=== PATIENT | female | born 1955 | race Hispanic/Latino ===

== ENCOUNTER 2019-04-21 07:57 | Day surgery (SDC) | payer OTHER ==
[2019-04-20 15:53] LABS: CREATININE 0.8 mg/dL (0.5-1.5)
[2019-04-20 15:54] LABS: BASOPHILS % (AUTO) 1.1 % (0.0-5.0); EOSINOPHILS % (AUTO) 3.1 % (0.0-8.0); HEMATOCRIT 41.7 % (36-48); LYMPHOCYTES % (AUTO) 34.9 % (21.0-51.0); MEAN CORPUSCULAR HEMOGLOBIN 30.3 pg (27.0-33.0); MEAN CORPUSCULAR HGB CONC 33.4 g/dL (32.0-36.0); MEAN CORPUSCULAR VOLUME 90.7 fL (79-99); NEUTROPHILS % (AUTO) 52.9 % (40.0-77.0); PLATELET COUNT (AUTO) 238 K/uL (130-400); RED CELL DISTRIBUTION WIDTH 14.3 % (11.0-15.5); WHITE BLOOD COUNT (AUTO) 6.1 K/uL (4.8-10.8)
[2019-04-20 17:00] VITALS: BP 134/74
[2019-04-21] VITALS (18 sets, daily range): BP systolic 102–128; BP diastolic 58–76
[~2019-04-21] VITALS: Ht 160 cm; Wt 67.1 kg
[2019-04-21] MEDS ORDERED: LACTATED RINGERS 1000ML 1,000 ML IV ONE (08:59)
[2019-04-21] MEDS ORDERED: LATA7.5D OU (09:28)
[2019-04-21] MEDS: CEFAZOLIN SODIUM 1 GM VIAL IVP ONE ×2 (09:29→11:10)
[2019-04-21] MEDS ORDERED: DiphenhydrAMINE HCL 50 MG/ML VIAL ONE (09:44)
--- NOTE | 2019-04-21 09:45 | NUR ---
COUGH DR. HAGAN NOTIFIED THAT PATIENT ALL OF A SUDDEN COMPLAINED OF DRY COUGH, THROAT PAIN, DRAINAGE TO BACK OF THROAT, FURTHER ORDERS GIVEN AND WILL BE CARRIED OUT, WILL CONTINUE TO MONITOR. PATIENT INSTRUCTED TO LET NURSE KNOW IF SHE FEELS WORST. SHE VERBALIZED UNDERSTANDING. SHE STATES " I FEEL LIKE IM ALLERGIC TO SOMETHING HERE IN HOSPITAL I SMELL CLEANING DETERGENT . SHE ASKED TO HAVE WARMER BLANKET REMOVED . CALL LIGHT WITHIN REACH
[2019-04-21] MEDS ORDERED: LIDOCAINE PF 2% 5ML ABBOJECT ONE (10:12)
[2019-04-21] MEDS ORDERED: ROCURONIUM 10MG/1ML SYR 10 MG/ML ML ONE (10:13)
[2019-04-21] MEDS ORDERED: PROPOFOL 10 MG/ML 20ML VIAL IV ONE (10:13)
[2019-04-21] MEDS ORDERED: MIDAZOLAM HCL 1 MG/ML 2ML VIAL ONE (10:13)
[2019-04-21] MEDS ORDERED: FENTANYL CITRATE PF 50 MCG/1 ML 5ML AMP IV ONE (10:14)
[2019-04-21] MEDS ORDERED: EPHEDRINE SULFATE 50 MG/ML AMPULE ONE (10:37)
[2019-04-21] MEDS ORDERED: EPINEPHRINE 1 MG/ML 30ML VIAL IJ ONE (10:57)
[2019-04-21] MEDS ORDERED: PHENYLEPHRINE HCL 10 MG/ML 1ML VIAL IV ONE (10:58)
[2019-04-21] MEDS ORDERED: ONDANSETRON HCL 4 MG/2 ML VIAL ONE (11:45)
[2019-04-21] MEDS ORDERED: NEOSTIGMINE 5MG/5ML SYR IV ONE (11:45)
[2019-04-21] MEDS ORDERED: DEXAMETHASONE SOD PHOSPHATE 10MG/ML 1ML VIAL ONE (11:45)
[2019-04-21] MEDS ORDERED: GLYCOPYRROLATE 1 MG/5 ML SYRINGE ONE (11:45)
[2019-04-21] MEDS ORDERED: CEPH500B PO (12:50)
[2019-04-21] MEDS ORDERED: HYDR-4457 PO (12:50)
[2019-04-21] MEDS ORDERED: MELO-106 PO (12:50)
[2019-04-21] MEDS ORDERED: MEPERIDINE-PF 25 MG/ML SYG ONE (12:56)
--- NOTE | 2019-04-21 13:43 | NUR ---
post received pt from [facility], s/p right shoulder arthroscopy, small dressing x 3 dry and intact covered with opsite dressing , slight swelling to site. pt awake and alert in bed , no distress noted. pt denies any pain or discomforts. arm sling in place. pt received a nerve block unable to move fingers. right arm warm and pink in color. call light within reach.
--- NOTE | 2019-04-21 14:30 | NUR ---
dc pt dc home via w[facility], no distress noted. pt denied any pain or discomforts. right shoulder dressing x 3 dry and intact, arm sling in place. pt accompanied by spouse
== END 2019-04-21 14:30 | disposition home or self-care (01) ==
LOC: DAH 07:57
PROVIDERS: ATTEND Orthopaedic Surgery
DX: M75.111 Incomplete rotator cuff tear or rupture of right shoulder, not specified as traumatic (principal); M25.511 Pain in right shoulder; Z72.89 Other problems related to lifestyle; Z79.899 Other long term (current) drug therapy; Z82.49 Family history of ischemic heart disease and other diseases of the circulatory system; Z82.3 Family history of stroke; Z82.5 Family history of asthma and other chronic lower respiratory diseases
CPT/HCPCS: 29824; 29826; 29827; 36415; 64415; 76942; 80048; 82948 ×2; 85025; A4215; A4221; A4222; A4223; A4565; A4649 ×6; A4663; A4930; A6204; C1713 ×2; G0168; J0171; J0690; J1100; J1200; J2001; J2175; J2250; J2370; J2405; J2704; J2710; J3010; J3490 ×2; J7030; J7120

== ENCOUNTER → 2022-03-26 | Outpatient (CLI) | payer MEDICARE ==
[~2022-03-26] MED LIST: CEPH500B PO; HYDR-4457 PO; LATA7.5D OU; MELO-106 PO
== END | disposition home or self-care (01) ==
LOC: RAH 09:12
PROVIDERS: ATTEND Student in an Organized Health Care Education/Training Program
DX: M75.42 Impingement syndrome of left shoulder (principal)
CPT/HCPCS: 73221

== ENCOUNTER 2022-04-13 06:21 | Day surgery (SDC) | payer MEDICARE ==
[2022-04-10 10:56] LABS: BASOPHILS % (AUTO) 1.6 % (0.0-5.0); EOSINOPHILS % (AUTO) 2.4 % (0.0-8.0); HEMATOCRIT 43.9 % (36-48); LYMPHOCYTES % (AUTO) 44.8 % (21.0-51.0); MEAN CORPUSCULAR HEMOGLOBIN 29.8 pg (27.0-33.0); MEAN CORPUSCULAR HGB CONC 32.8 g/dL (32.0-36.0); MEAN CORPUSCULAR VOLUME 90.7 fL (79-99); MONOCYTES % (AUTO) 9.1 % (3.0-13.0); NEUTROPHILS % (AUTO) 41.8 % (40.0-77.0); PLATELET COUNT (AUTO) 205 K/uL (130-400); RED BLOOD CELL COUNT(AUTO) 4.84 MIL/uL (4.00-5.50); RED CELL DISTRIBUTION WIDTH 13.3 % (11.0-15.5); WHITE BLOOD COUNT (AUTO) 3.8 K/uL (4.8-10.8)
[2022-04-10 11:09] LABS: INR 0.97 (0.85-1.15); PROTHROMBIN TIME 10.6 SEC (9.6-11.6)
[2022-04-10 11:10] LABS: ALBUMIN 3.8 g/dL (3.5-5.0)
[2022-04-10 11:11] LABS: PARTIAL THROMBOPLASTIN TIME 25.9 SEC (26.3-35.5)
[2022-04-10 11:38] LABS: CRP QUANTITATIVE < 2.00 mg/L (0.00-9.0)
[2022-04-10 15:47] VITALS: BP 124/66
[2022-04-13] VITALS (15 sets, daily range): BP systolic 108–131; BP diastolic 54–76
[~2022-04-13] VITALS: Ht 157.5 cm; Wt 72.1 kg
[2022-04-13] MEDS: CEFAZOLIN SODIUM 1 GM VIAL IVPB SCH ×2 (06:00→11:06)
[~2022-04-13 06:21] MED LIST changes: +ACYC400T20 PO; -CEPH500B PO; -HYDR-4457 PO; -LATA7.5D OU; -MELO-106 PO; +ROPIVACAINE 0.5% 5MG/ML 30ML IJ ONE; +ROSU5TAB12 PO; +UBID300C PO
[2022-04-13] MEDS ORDERED: LACTATED RINGERS 1000ML 1,000 ML IV ONE (07:16)
[2022-04-13 07:20] LABS: CREATININE 0.9 mg/dL (0.5-1.5); POTASSIUM 3.5 mmol/L (3.5-5.1)
[2022-04-13] MEDS ORDERED: EPINEPHRINE PF 1MG (1:1,000) 1 MG/ML AMP ONE (09:32)
[2022-04-13] MEDS ORDERED: LIDOCAINE PF 100MG/5ML (2%) SYRINGE 5ML ONE (09:50)
[2022-04-13] MEDS ORDERED: PROPOFOL 10 MG/ML 20ML VIAL IV ONE (09:50)
[2022-04-13] MEDS ORDERED: ROCURONIUM 10MG/1ML SYR 10 MG/ML ML ONE ×2 (09:51→13:01)
[2022-04-13] MEDS ORDERED: FENTANYL CITRATE PF 50 MCG/1 ML 2ML VIAL ONE (09:51)
[2022-04-13] MEDS ORDERED: MIDAZOLAM HCL 1 MG/ML 2ML VIAL ONE (09:51)
[2022-04-13] MEDS ORDERED: DEXAMETHASONE SOD PHOSPHATE 10MG/ML 1ML VIAL ONE (10:16)
[2022-04-13] MEDS ORDERED: ONDANSETRON 4MG INJ ONE (10:16)
[2022-04-13] MEDS ORDERED: KETOROLAC 30MG VIAL (30MG/ML) ONE (10:16)
[2022-04-13] MEDS ORDERED: GLYCOPYRROLATE 1 MG/5 ML SYRINGE ONE (10:18)
[2022-04-13] MEDS ORDERED: NEOSTIGMINE 5MG/5ML SYR IV ONE (10:18)
[2022-04-13] MEDS ORDERED: EPHEDRINE SULFATE 50 MG/ML AMPULE ONE (11:28)
[2022-04-13] MEDS ORDERED: HYDR-4060 PO (13:46)
== END 2022-04-13 15:50 | disposition home or self-care (01) ==
LOC: DAH 06:21
PROVIDERS: ATTEND Student in an Organized Health Care Education/Training Program
DX: M75.112 Incomplete rotator cuff tear or rupture of left shoulder, not specified as traumatic (principal); Z20.822 Contact with and (suspected) exposure to COVID-19; M25.812 Other specified joint disorders, left shoulder; M94.212 Chondromalacia, left shoulder; E78.5 Hyperlipidemia, unspecified; M85.80 Other specified disorders of bone density and structure, unspecified site; Z98.890 Other specified postprocedural states; Z80.0 Family history of malignant neoplasm of digestive organs; Z80.42 Family history of malignant neoplasm of prostate; Z82.0 Family history of epilepsy and other diseases of the nervous system; Z79.01 Long term (current) use of anticoagulants; Z79.899 Other long term (current) drug therapy
CPT/HCPCS: 82040; 85025; 85610; 85730; 84134; 86140; 87426; 36415 ×2; 71045; 93005; 29827; 29826; 80048; 82948; A4663; A6207; J7030; J7120; J3010; J0690; J3490 ×2; J1100; J2710; J2001; J0171; J2250; J2704; J2405; J1885; J2795; A6223; C1769; C1713; A5120; A4215; A4223; A4222; A4221; A4600

== ENCOUNTER → 2022-06-11 | Outpatient (CLI) | payer MEDICARE ==
[~2022-06-11] MED LIST changes: +HYDR-4060 PO; -ROPIVACAINE 0.5% 5MG/ML 30ML IJ ONE; -UBID300C PO; +UBID300C3 PO
== END | disposition home or self-care (01) ==
LOC: RAH 10:33
PROVIDERS: ATTEND Nurse Practitioner
DX: M75.112 Incomplete rotator cuff tear or rupture of left shoulder, not specified as traumatic (principal); M19.012 Primary osteoarthritis, left shoulder; M67.912 Unspecified disorder of synovium and tendon, left shoulder
CPT/HCPCS: 73221